=== PATIENT | female | born 1955 | race Caucasian/White ===

== ENCOUNTER 2022-12-25 10:09 | Day surgery (SDC) | payer MEDICARE, SELFPAY ==
--- NOTE | 2022-12-24 10:49 | HO.ANESPROP2 ---
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 Migraine Peptic ulcer Surgical History Surgical History (Updated 12/25/22 @ 11:25 by Jane Young RN) H/O section H/O hernia repair Hx of bilateral cataract extraction Hx of total hip arthroplasty Hx of total knee arthroplasty Social History Social History Patient Tobacco Use Status: Never used Tobacco Use of substances other than those prescribed or required for medical reasons: No Substance Use Type Other:: thc and cbd Are you DNR?: No Advance Directives: No Advance Directives Information Provided: Yes Meds Allergies Allergy/AdvReac Type Severity Reaction Status Date / Time No Known Allergies Allergy Verified 12/24/22 09:04 Home Medications Medication Instructions Recorded Confirmed Last Taken Type atenolol 100 mg tablet 1 tab PO DAILY 12/24/22 12/24/22 12/25/22 History citalopram 40 mg tablet 1 tab PO DAILY 12/24/22 12/24/22 Unknown History lisinopril 10 mg tablet 1 tab PO DAILY 12/24/22 12/24/22 Unknown History omeprazole 40 mg capsule,delayed 1 cap PO DAILY 12/24/22 12/24/22 Unknown History release pravastatin 40 mg tablet 1 tab PO DAILY 12/24/22 12/24/22 Unknown History amoxicillin 500 mg tablet 2,000 mg PO ONCE 12/25/22 12/25/22 12/25/22 History Exam Exam Date and Time: December 24, 2022 104 Assessment and Plan Assessment Anesthesia Assessment: Chart Reviewed
[2022-12-25 11:27] VITALS: BMI 36.0
[2022-12-25 11:30] VITALS: BP 113/45; PULSE 55; RESP 16; TEMP 36.4; O2SAT 95
[2022-12-25] MEDS: Lactated Ringers 1,000 ML 100 ML IVCONT (11:42)
--- NOTE | 2022-12-25 12:25 | MHC.SHP ---
Pre-Procedural Eval Section A Date of Service: 12/25/22 Section B Chief Complaint: Change in bowel habit Details of Present Illness: see H&P no changes Relevant Family History (Specify if Yes): No Relevant Social History: None Present Medications: see Short Stay Collaborative assessment Medical History: No relevant PMH History of Previous Operations: No relevant previous surgery Allergies: Allergies Allergy/AdvReac Type Severity Reaction Status Date / Time No Known Allergies Allergy Verified 12/24/22 09:04 Review of Systems Sugical H&P ROS: Negative: Constitution, Cardiovascular, Respiratory, Neurological, Psychiatric, Hem-Onc, Allergic/Immunologic, Gastrointestinal, Genitourinary, Musculoskeletal, Integumentary, Endocrine and Eyes/Ears/Nose/Throat Exam Surgical H&P Exam: Normal: HEENT, Normal: Heart, Normal: Lungs, Normal: Extremities, Normal: Abdomen, Normal: Skin and Normal: Neurological Plan Diagnosis/Plan: Unchanged I have reviewed the history and physical and performed a pertinent physical examination on my patient. No changes have occurred unless specified. Time Spent With Patient Time: Total time managing care of this patient today ____ minutes.
[2022-12-25 13:06] VITALS: BP 107/36; PULSE 65; RESP 16; TEMP 36.3; O2SAT 96
[2022-12-25 13:21] VITALS: BP 126/68; PULSE 60; RESP 18; TEMP 36.8; O2SAT 97
--- NOTE | 2022-12-25 13:31 | PM.OP ---
Brief Operative Note Date of Service: 12/25/22 Pre-op diagnosis: change in bowels Post-op diagnosis: same Procedure: cololnoscopy Surgeon: Jose De Jesus Conn Anesthesia: MAC Was an Pharmaceutical Sales Specialist used for this Procedure?: No Estimated blood loss (mL): 2 Pathology: other Condition: stable Disposition: PACU
--- NOTE | 2022-12-25 23:23 | OP_ITS ---
SURGEON: Jose De Jesus Conn MD INDICATIONS: Colonoscopy to the terminal ileum with biopsy and snare polypectomy. PREOPERATIVE DIAGNOSIS: POSTOPERATIVE DIAGNOSIS: PROCEDURE PERFORMED: ESTIMATED BLOOD LOSS: COMPLICATIONS: ANESTHESIA: ASSISTANTS: SPECIMENS: INDICATIONS: Change in bowel habits and colon cancer screening. MEDICATIONS: Monitored anesthesia care. PROCEDURE DESCRIPTION: History and physical was performed. The risks and benefits of the procedure explained to the patient and informed consent was obtained. The procedure was performed on 12/25. The Olympus pediatric video colonoscope was introduced into the rectum and advanced to the cecum without difficulty. The cecum was identified by transillumination, palpation, identification of ileocecal valve. Examination was performed. The scope was removed. She tolerated the procedure well and was returned to recovery area in stable condition. FINDINGS: The terminal ileum was examined and appeared normal. The visualized colonic mucosa was within normal limits. The quality of the prep was good with some thin layer of stool coating mucosa. Two polyps measuring less than 5 mm were removed with biopsy forceps. These were located in the cecum and in the hepatic flexure. The 3rd polyp at 70 cm measuring approximately 8 mm was removed with a cold snare. Recovery of this polyp was pending at the time of this dictation. No other polyps were identified. Retroflexed examination showed moderate-sized internal hemorrhoids. IMPRESSION: Colon polyps. RECOMMENDATION: Follow up the biopsy results. MD CATHY Arenas/LUIS / [id number]
== END 2022-12-25 13:45 | disposition home or self-care (01) ==
PROVIDERS: PCP Internal Medicine Geriatric Medicine; Visit Provider Internal Medicine Gastroenterology
PROC: 0DJD8ZZ Inspection of Lower Intestinal Tract, Via Natural or Artificial Opening Endoscopic (ICD-10-PCS; CPT 45378; principal; 2022-12-25 11:50)
DX: R19.4 Change in bowel habit (principal); D12.0 Benign neoplasm of cecum; K63.5 Polyp of colon; K64.8 Other hemorrhoids; K58.2 Mixed irritable bowel syndrome; I12.9 Hypertensive chronic kidney disease with stage 1 through stage 4 chronic kidney disease, or unspecified chronic kidney disease; N18.9 Chronic kidney disease, unspecified; E78.5 Hyperlipidemia, unspecified; R73.01 Impaired fasting glucose; G43.909 Migraine, unspecified, not intractable, without status migrainosus; Z79.899 Other long term (current) drug therapy; Z87.11 Personal history of peptic ulcer disease; Z98.890 Other specified postprocedural states; Z86.16 Personal history of COVID-19
CPT/HCPCS: 45385; 45380; 88305